=== PATIENT | male | born 1985 | race Caucasian/White ===

== ENCOUNTER → 2017-04-02 | Outpatient (CLI) | payer OTHER | LOC: KOH-I 10:57 | DX: R10.31 Right lower quadrant pain (principal) | CPT/HCPCS: 76881 ==

== ENCOUNTER → 2020-08-20 | Outpatient (CLI) | payer OTHER | LOC: EMI 14:12 | DX: E29.1 Testicular hypofunction (principal); D35.2 Benign neoplasm of pituitary gland | CPT/HCPCS: 70553; A9577 ==